=== PATIENT | male | born 1940 | race Caucasian/White ===

== ENCOUNTER 2019-11-20 13:41 | Outpatient (CLI) | payer MEDICARE ==
--- NOTE | 2019-11-20 14:31 | BD ---
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 Lumbar Spine: BMD (g/cm2) T-SCORE Z-SCORE L1 1.161 0.8 1.8 L2 1.236 1.3 2.4 L3 1.354 2.3 3.4 L4 1.397 2.8 4.0 L1-L4 1.299 1.9 3.0 Femoral Neck: 0.845 -0.6 -0.9 Total Femur: 1.019 0.1 0.9 The ten year fracture risk for a major osteoporotic fracture is 6.5% and for hip fracture is 1.8%. Impression: Normal BMD. POS: JAMIE
== END 2019-11-20 13:42 | disposition home or self-care (01) ==
LOC: BICMAMMO 13:41
PROVIDERS: ATTEND Internal Medicine Rheumatology
DX: Z13.820 Encounter for screening for osteoporosis (principal); M06.4 Inflammatory polyarthropathy
CPT/HCPCS: 77080

== ENCOUNTER 2020-02-12 10:13 | Outpatient (CLI) | payer MEDICARE ==
--- NOTE | 2020-02-12 11:01 | ULT ---
US Gallbladder RUQ: 02/12/2020 10:45 AM CLINICAL HISTORY: Elevated LFTs. STUDY: Limited right upper quadrant ultrasound of abdomen. COMPARISON: None. FINDINGS: Liver: Size: Normal. Echogenicity: Normal. Contour: Smooth. Mass: None. Bile ducts: No intrahepatic or extrahepatic biliary dilatation. Common bile duct measures 5 mm. Gallbladder: There are 2 nonshadowing echogenic foci in the gallbladder measuring up to 3 mm in size. These could represent nonshadowing stones or sludge balls. Pancreas: Head, body, and tail appear normal. Right kidney: No pelvicalyceal dilatation. Right kidney measuring 9.5 cm in length. There is an 8mm r ight renal cyst. IMPRESSION: 1. Nonshadowing gallstones versus sludge balls 2. Right renal cyst
== END 2020-02-12 10:14 | disposition home or self-care (01) ==
LOC: SCSULT 10:13
PROVIDERS: ATTEND Internal Medicine Rheumatology
DX: R74.8 Abnormal levels of other serum enzymes (principal); N28.1 Cyst of kidney, acquired
CPT/HCPCS: 76705